=== PATIENT | male | born 1945 | race Caucasian/White ===

== ENCOUNTER 2019-03-24 23:27 | Observation (INO) | payer MEDICARE, OTHER ==
--- NOTE | 2019-03-25 00:19 | XR ---
EXAM: XR Chest, 1 View CLINICAL HISTORY: ITS.REASON XR Reason: syncope TECHNIQUE: Frontal view of the chest. COMPARISON: No relevant prior studies available. IMPRESSION: Cardiomegaly. No consolidation or pleural effusion.
--- NOTE | 2019-03-25 00:25 | ED ---
Syncope HPI - General Chief Complaint: Syncope Stated Complaint: Syncope Time Seen by Provider: 03/24/19 23:39 Source: patient, family Mode of arrival: ambulatory Limitations: no limitations - History of Present Illness Initial Comments: This patient is a 74-year-old man who comes in to be evaluated for syncopal episode. The patient relates that he had been sitting in a chair and reading a book, when he decided that it was time to give her a for bed. He states that he stood up, or was attempting to stand up and then does not recall anything until he woke up with EMS there. The patient's stated that she had come down to check him and found him slumped in the side of a chair. She states that she attempted to wake him, other family members did as well, and they were not able to so they called EMS. The patient slowly regained consciousness a number minutes later. Patient denies chest pain, dyspnea, palpitations, or any focal symptoms. In reviewing whether the patient had any chest pain, he displayed some ecchymosis to the anterior chest wall that he states been there approximately 3-4 days. He states that he believes he must a passed out and hit the anterior of his chest a few days ago. He denies significant pain but states it is a little bit of tenderness. MD Complaint: loss of consciousness Onset/Timin -: hour(s) Prodromal Symptoms: none -: minutes(s) Witnessed: yes - by bystander Injuries Sustained Associated with Event: None Current Symptoms: back to baseline History: previous syncopal episode Context: standing up Treatments Prior to Arrival: none - Related Data Allergies Allergy/AdvReac Type Severity Reaction Status Date / Time No Known Allergies Allergy Verified 03/24/19 23:37 Review of Systems ROS Statement: Those systems with pertinent positive or pertinent negative responses have been documented in the HPI. ROS Other: All systems not noted in ROS Statement are negative. Constitutional: Denies: fever, chills, weakness Eyes: Denies: vision change Respiratory: Denies: cough, dyspnea Cardiovascular: Reports: syncope. Denies: chest pain, palpitations, orthopnea, edema Gastrointestinal: Denies: abdominal pain, nausea, vomiting, melena, hematochezia Genitourinary: Denies: dysuria, hematuria Musculoskeletal: Denies: back pain Skin: Denies: rash Neurological: Denies: headache, weakness, numbness Past Medical History Past Medical History: Hearing Disorder / Deafness, Hyperlipidemia, Hypertension, Syncope, Thyroid Disorder Additional Past Medical History / Comment(s): hyponatremia, loss of hearing in left ear, vertigo, gout, kidney stones, low magnesium. History of Any Multi-Drug Resistant Organisms: None Reported Past Surgical History: Hernia Repair, Joint Replacement, Orthopedic Surgery Additional Past Surgical History / Comment(s): right hip, back pain stumulator placed and removed, bladder surgery, Past Psychological History: No Psychological Hx Reported Smoking Status: Former smoker Past Alcohol Use History: Abuse, Daily, Heavy Past Drug Use History: None Reported General Exam Limitations: no limitations General appearance: alert, in no apparent distress Head exam: Present: atraumatic, normocephalic Eye exam: Present: normal appearance. Absent: scleral icterus, conjunctival injection ENT exam: Present: normal oropharynx Neck exam: Present: normal inspection Respiratory exam: Present: normal lung sounds bilaterally, chest wall tenderness, other (The patient has subacute ecchymosis to the anterior chest. There is some minimal tenderness to palpation there. No palpable deformity.). Absent: respiratory distress, wheezes, rales, rhonchi, stridor Cardiovascular Exam: Present: regular rate, normal rhythm, normal heart sounds. Absent: systolic murmur, diastolic murmur, rubs, gallop GI/Abdominal exam: Present: soft. Absent: tenderness, guarding, rebound, mass, pulsatile mass Extremities exam: Present: normal inspection, normal capillary refill. Absent: pedal edema, calf tenderness Back exam: Present: normal inspection. Absent: CVA tenderness (R), CVA tenderness (L) Neurological exam: Present: alert, oriented X3, CN II-XII intact. Absent: motor sensory deficit Skin exam: Present: warm, dry, intact, normal color. Absent: rash Course Vital Signs 03/24/19 03/25/19 23:28 03:21 Temperature 97.7 F Pulse Rate 71 75 Respiratory 18 18 Rate Blood Pressure 99/56 131/69 O2 Sat by Pulse 97 100 Oximetry EKG Findings - EKG Results: EKG: interpreted by ERMD, sinus rhythm (Rate approximate 70 bpm) - Blocks, [place], Hypertrophy, ST Abn: AV and intraventricular conduction: 1 AV block Repolarization changes or abnormalities: nonspecific abnormality, ST segment, and/or T wave, Q-T interval prolongation Medical Decision Making - Lab Data Result diagrams: 03/24/19 23:50 03/24/19 23:50 Lab Results 03/24/19 03/24/19 03/24/19 Range/Units 23:50 23:50 23:50 WBC 4.8 (3.8-10.6) k/uL RBC 3.03 L (4.30-5.90) m/uL Hgb 9.8 L (13.0-17.5) gm/dL Hct 30.9 L (39.0-53.0) % MCV 102.0 H (80.0-100.0) fL MCH 32.2 (25.0-35.0) pg MCHC 31.6 (31.0-37.0) g/dL RDW 13.7 (11.5-15.5) % Plt Count 341 (150-450) k/uL Neutrophils % 43 % Lymphocytes % 37 % Monocytes % 8 % Eosinophils % 7 % Basophils % 2 % Neutrophils # 2.1 (1.3-7.7) k/uL Lymphocytes # 1.8 (1.0-4.8) k/uL Monocytes # 0.4 (0-1.0) k/uL Eosinophils # 0.3 (0-0.7) k/uL Basophils # 0.1 (0-0.2) k/uL Macrocytosis Slight PT 11.6 (9.0-12.0) sec INR 1.1 (<1.2) APTT 24.7 (22.0-30.0) sec D-Dimer 0.64 H (<0.60) mg/L FEU Sodium 129 L (137-145) mmol/L Potassium 4.2 (3.5-5.1) mmol/L Chloride 96 L (98-107) mmol/L Carbon Dioxide 22 (22-30) mmol/L Anion Gap 11 mmol/L BUN 13 (9-20) mg/dL Creatinine 1.68 H (0.66-1.25) mg/dL Est GFR (CKD-EPI)AfAm 46 (>60 ml/min/1.73 sqM) Est GFR (CKD-EPI)NonAf 40 (>60 ml/min/1.73 sqM) Glucose 114 H (74-99) mg/dL Calcium 9.3 (8.4-10.2) mg/dL Magnesium 1.6 (1.6-2.3) mg/dL Total Bilirubin 0.7 (0.2-1.3) mg/dL AST 33 (17-59) U/L ALT 13 L (21-72) U/L Alkaline Phosphatase 34 L (38-126) U/L Troponin I (0.000-0.034) ng/mL Total Protein 6.0 L (6.3-8.2) g/dL Albumin 3.5 (3.5-5.0) g/dL Urine Color Urine Appearance (Clear) Urine pH (5.0-8.0) Ur Specific [place] (1.001-1.035) Urine Protein (Negative) Urine Glucose (UA) (Negative) Urine Ketones (Negative) Urine Blood (Negative) Urine Nitrite (Negative) Urine Bilirubin (Negative) Urine Urobilinogen (<2.0) mg/dL Ur Leukocyte Esterase (Negative) Urine RBC (0-5) /hpf Urine WBC (0-5) /hpf Ur Squamous Epith Cells (0-4) /hpf Ur Transition Epith Cell (0-1) /hpf Urine Bacteria (None) /hpf Hyaline Casts (0-2) /lpf Urine Mucus (None) /hpf Serum Alcohol 122 mg/dL 03/24/19 03/25/19 Range/Units 23:50 01:23 WBC (3.8-10.6) k/uL RBC (4.30-5.90) m/uL Hgb (13.0-17.5) gm/dL Hct (39.0-53.0) % MCV (80.0-100.0) fL MCH (25.0-35.0) pg MCHC (31.0-37.0) g/dL RDW (11.5-15.5) % Plt Count (150-450) k/uL Neutrophils % % Lymphocytes % % Monocytes % % Eosinophils % % Basophils % % Neutrophils # (1.3-7.7) k/uL Lymphocytes # (1.0-4.8) k/uL Monocytes # (0-1.0) k/uL Eosinophils # (0-0.7) k/uL Basophils # (0-0.2) k/uL Macrocytosis PT (9.0-12.0) sec INR (<1.2) APTT (22.0-30.0) sec D-Dimer (<0.60) mg/L FEU Sodium (137-145) mmol/L Potassium (3.5-5.1) mmol/L Chloride (98-107) mmol/L Carbon Dioxide (22-30) mmol/L Anion Gap mmol/L BUN (9-20) mg/dL Creatinine (0.66-1.25) mg/dL Est GFR (CKD-EPI)AfAm (>60 ml/min/1.73 sqM) Est GFR (CKD-EPI)NonAf (>60 ml/min/1.73 sqM) Glucose (74-99) mg/dL Calcium (8.4-10.2) mg/dL Magnesium (1.6-2.3) mg/dL Total Bilirubin (0.2-1.3) mg/dL AST (17-59) U/L ALT (21-72) U/L Alkaline Phosphatase (38-126) U/L Troponin I <0.012 (0.000-0.034) ng/mL Total Protein (6.3-8.2) g/dL Albumin (3.5-5.0) g/dL Urine Color Dark Yellow Urine Appearance Cloudy (Clear) Urine pH 5.5 (5.0-8.0) Ur Specific [place] 1.016 (1.001-1.035) Urine Protein 2+ H (Negative) Urine Glucose (UA) Negative (Negative) Urine Ketones Negative (Negative) Urine Blood Negative (Negative) Urine Nitrite Negative (Negative) Urine Bilirubin Negative (Negative) Urine Urobilinogen <2.0 (<2.0) mg/dL Ur Leukocyte Esterase Trace H (Negative) Urine RBC 2 (0-5) /hpf Urine WBC 5 (0-5) /hpf Ur Squamous Epith Cells 2 (0-4) /hpf Ur Transition Epith Cell <1 (0-1) /hpf Urine Bacteria Rare H (None) /hpf Hyaline Casts 108 H (0-2) /lpf Urine Mucus Occasional H (None) /hpf Serum Alcohol mg/dL Disposition Clinical Impression: Syncope Disposition: ADMITTED IP TO THIS HOSP Condition: Good Is patient prescribed a controlled substance at d/c from ED?: No Referrals: Nonstaff,Physician [Primary Care Provider] - 1-2 days
[2019-03-25 00:34] LABS: Basophils # (A) 0.1 k/uL (0-0.2); Basophils % (A) 2 %; Eosinophils # (A) 0.3 k/uL (0-0.7); Eosinophils % (A) 7 %; HCT 30.9 % (39.0-53.0); HGB 9.8 gm/dL (13.0-17.5); Lymphocytes # (A) 1.8 k/uL (1.0-4.8); Lymphocytes % (A) 37 %; MCH 32.2 pg (25.0-35.0); MCHC 31.6 g/dL (31.0-37.0); Macrocytosis Slight; Monocytes # (A) 0.4 k/uL (0-1.0); Monocytes % (A) 8 %; Neutrophils # (A) 2.1 k/uL (1.3-7.7); Neutrophils % (A) 43 %; Platelet Count 341 k/uL (150-450); RBC 3.03 m/uL (4.30-5.90); RDW 13.7 % (11.5-15.5); WBC 4.8 k/uL (3.8-10.6)
[2019-03-25 00:44] LABS: INR 1.1 (<1.2); Partial Thromboplastin Time 24.7 sec (22.0-30.0); Prothrombin Time 11.6 sec (9.0-12.0)
[2019-03-25 00:59] LABS: D-Dimer 0.64 mg/L FEU (<0.60)
[2019-03-25 01:08] LABS: Albumin 3.5 g/dL (3.5-5.0); Calcium 9.3 mg/dL (8.4-10.2); Magnesium 1.6 mg/dL (1.6-2.3); Potassium 4.2 mmol/L (3.5-5.1); Total Bilirubin 0.7 mg/dL (0.2-1.3)
[2019-03-25 01:44] LABS: Appearance,Urine Cloudy (Clear); Bacteria,Urine Rare /hpf; Bilirubin,Urine Negative (Negative); Blood,Urine Negative (Negative); Color,Urine Dark Yellow; Glucose,Urine (UA) Negative (Negative); Hyaline Casts,Urine 108 /lpf (0-2); Ketones,Urine Negative (Negative); Leukocyte Esterase,Urine Trace (Negative); Mucus,Urine Occasional /hpf; Nitrite,Urine Negative (Negative); PH, Urine 5.5 (5.0-8.0); Protein,Urine 2+ (Negative); RBC,Urine 2 /hpf (0-5); Specific Gravity,Urine 1.016 (1.001-1.035); Squamous Epithelial Cell,Urine 2 /hpf (0-4); Transitional Epi Cells,Urine <1 /hpf (0-1); Urobilinogen,Urine <2.0 mg/dL (<2.0); WBC,Urine 5 /hpf (0-5)
[2019-03-25] MEDS ORDERED: SODIUM CHLORIDE 0.9% 1,000 ML IV ONE ×2 (01:51→03:28)
--- NOTE | 2019-03-25 03:26 | CT ---
EXAM: CT Angiography Chest With Intravenous Contrast CLINICAL HISTORY: ITS.REASON CT Reason: Pain TECHNIQUE: Axial computed tomographic angiography images of the chest with intravenous contrast using pulmonary embolism protocol. CTDI is 11 mGy and DLP is 472 mGy-cm. This CT exam was performed using one or more of the following dose reduction techniques: automated exposure control, adjustment of the mA and/or kV according to patient size, and/or use of iterative reconstruction technique. MIP reconstructed images were created and reviewed. COMPARISON: Chest x-ray 03/25/19 FINDINGS: Pulmonary arteries: No filling defects. Aorta: No thoracic aortic aneurysm. Lungs: No mass. No consolidation. 5 mm nodule in the right middle lobe (series 401 image 81). Pleural space: No significant effusion. No pneumothorax. Heart: Mild cardiomegaly or pericardial effusion. Bones/joints: No acute fracture or dislocation. Soft tissues: Cholelithiasis. Lymph nodes: No enlarged lymph nodes. IMPRESSION: 1. No pulmonary embolism. 2. 5 mm nodule in the right middle lobe. 3. Cholelithiasis. Fleishner Society Guideline 2017: Solitary nodule size: <6 mm low-risk patients: no follow-up needed high-risk patients: optional CT at 12 months low-risk patients: a minimal or absent history of smoking and or other known risk factors high-risk patients: a history of smoking or of other known risk factors (e.g. first degree relative with lung cancer, or exposure to asbestos, radon, uranium)
[2019-03-25] MEDS ORDERED: NITROGLYCERIN SL TABS 0.4 MG TAB SUBLINGUAL PRN (04:13)
--- NOTE | 2019-03-25 06:53 | P.HPIM ---
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 The patient reports that he was reading a book and drinking gin and sprite in a chair at home prior to going to bed when he felt that he was more tired than usual. He initially tried to stand up but felt unsteady and thereby tried to hold onto the chair and attempted to stand again and then doesn't recall anything after that until he woke up at the side of the chair with EMS at his side. The patient's family tried to arouse him though wasn't able to with total down-time of 5-10 minutes. He denied any prodrome of chest pain, shortness of breath, palpitations. He also denied noticing weakness, numbness, tingling, tongue biting, or abnormal shaking movements. There was no reports ot noticing any unusual shaking movements, urinary incontinence, or fecal incontinence by his family members. He reports that he wa s admitted to a hospital in [place] 2 weeks ago for weakness and was found to be hyponatremic (reports Na of 120) which was corrected and he was discharged. He also reports that 2 days ago he had noticed a bruise on his chest and believes that he might have fallen previously and does not recall the episode. He reports a history of drinking heavily though states that he has cut down significantly now and drinks only a few alcoholic beverages daily. At time of the interview, he denied chest pain, shortness of breath, palpitations, fever, chills, cough, nausea, vomiting, abdominal pain, diarrhea, or constipation. He denied ever being hospitalized for his drinking. He underwent an extensive ev aluation in the ED with chest x-ray showing cardiomegaly, EKG with sinus rhythm with first-degree AV block at 70 bpm with PVCs with T-wave inversion in leads V1 to V3 and flattening in V4. He also underwent a chest CTA which revealed a 5 mm nodule in the right middle lobe (no prior history of smoking) with no additional acute abnormalities noted. Laboratory evaluation revealed a sodium of 129, t roponin < 0.012, d-dimer 0.64, serum alcohol 122, BUN 13, Cr 1.68, and hgb 9.8. He is being admitted to the medicine service for further management. Review of Systems Pertinent positives and negatives as discussed in HPI, a complete review of systems was performed and all other systems are negative. Past Medical History Past Medical History: Hearing Disorder / Deafness, Hyperlipidemia, Hypertension, Syncope, Thyroid Disorder Additional Past Medical History / Comment(s): hyponatremia, loss of hearing in left ear, vertigo, gout, kidney stones, low magnesium. balance issues History of Any Multi-Drug Resistant Organisms: None Reported Past Surgical History: Hernia Repair, Joint Replacement, Orthopedic Surgery Additional Past Surgical History / Comment(s): right hip, back pain stimulator placed and removed, bladder surgery, Past Anesthesia/Blood Transfusion Reactions: No Reported Reaction Past Psychological History: No Psychological Hx Reported Smoking Status: Never smoker Past Alcohol Use History: Abuse, Daily, Heavy Additional Past Alcohol Use History / Comment(s): patient reports that he drinks a half of a fifth of liquor daily for the last 40-50 years Past Drug Use History: None Reported - Past Family History Father Additional Family Medical History / Comment(s): back issues Mother Additional Family Medical History / Comment(s): ETOH Sister(s) Additional Family Medical History / Comment(s): MS Brother(s) Family Medical History: No Reported History Daughter(s) Family Medical History: Diabetes Mellitus Additional Family Medical History / Comment(s): right ear tumor Son(s) Additional Family Medical History / Comment(s): gout, kidney stones Medications and Allergies Allergies Allergy/AdvReac Type Severity Reaction Status Date / Time No Known Allergies Allergy Verified 03/25/19 04:59 Physical Exam Vitals: Vital Signs Temp Pulse Pulse Resp BP BP Pulse Ox 03/25/19 05:30 16 03/25/19 04:56 98.2 F 90 16 166/94 98 03/25/19 04:30 97.8 F 80 18 149/83 100 03/25/19 03:21 75 18 131/69 100 03/24/19 23:28 97.7 F 71 18 99/56 97 Intake and Output 03/24/19 03/24/19 03/25/19 14:59 22:59 06:59 Other: Voiding Method Toilet Weight 99.79 kg General: non toxic, no distress, appears at stated age, normal weight Derm: Ecchymosis over the sternum with mild tenderness, warm, dry Head: atraumatic, normocephalic, symmetric Eyes: EOMI, no lid lag, anicteric sclera, pupils equal round reactive to light ENT: Nose and ears atraumatic, no thrush, no pharyngeal erythema Neck: No thyromegaly, no cervical lymphadenopathy, trachea midline, supple Mouth: no lip lesion, mucus membranes moist Cardiovascular: S1S2 reg, no murmur, positive posterior tibial pulse bilateral, no edema, capillary refill less than 2 seconds Lungs: CTA bilateral, no rhonchi, no rales , no accessory muscle use Abdominal: soft, nontender to palpation, no guarding, no appreciable organomegaly, normal bowel sounds Ext: no gross muscle atrophy, muscle strength 5 out of 5 in all 4 extremities grossly, no contractures, Neuro: CN II-XI grossly intact, light touch intact all 4 extremities, finger to nose within normal limits Psych: Alert, oriented, appropriate affect Results CBC & Chem 7: 03/24/19 23:50 03/24/19 23:50 Labs: Abnormal Lab Results - Last 24 Hours (Table) 03/24/19 03/24/19 03/24/19 Range/Units 23:50 23:50 23:50 RBC 3.03 L (4.30-5.90) m/uL Hgb 9.8 L (13.0-17.5) gm/dL Hct 30.9 L (39.0-53.0) % MCV 102.0 H (80.0-100.0) fL D-Dimer 0.64 H (<0.60) mg/L FEU Sodium 129 L (137-145) mmol/L Chloride 96 L (98-107) mmol/L Creatinine 1.68 H (0.66-1.25) mg/dL Glucose 114 H (74-99) mg/dL ALT 13 L (21-72) U/L Alkaline Phosphatase 34 L (38-126) U/L Total Protein 6.0 L (6.3-8.2) g/dL Urine Protein (Negative) Ur Leukocyte Esterase (Negative) Urine Bacteria (None) /hpf Hyaline Casts (0-2) /lpf Urine Mucus (None) /hpf 03/25/19 Range/Units 01:23 RBC (4.30-5.90) m/uL Hgb (13.0-17.5) gm/dL Hct (39.0-53.0) % MCV (80.0-100.0) fL D-Dimer (<0.60) mg/L FEU Sodium (137-145) mmol/L Chloride (98-107) mmol/L Creatinine (0.66-1.25) mg/dL Glucose (74-99) mg/dL ALT (21-72) U/L Alkaline Phosphatase (38-126) U/L Total Protein (6.3-8.2) g/dL Urine Protein 2+ H (Negative) Ur Leukocyte Esterase Trace H (Negative) Urine Bacteria Rare H (None) /hpf Hyaline Casts 108 H (0-2) /lpf Urine Mucus Occasional H (None) /hpf Thrombosis Risk Factor Assmnt - Choose All That Apply Any of the Below Risk Factors Present?: Yes Each Factor Represents 1 point: Obesity (BMI >25) Other Risk Factors: Yes Each Risk Factor Represents 2 Points: Age 61-74 years Other congenital or acquired thrombophilia - If yes, enter type in comment: No Thrombosis Risk Factor Assessment Total Risk Factor Score: 3 Thrombosis Risk Factor Assessment Level: Moderate Risk Assessment and Plan Plan: Syncope, likely orthostatic in setting of alcohol intoxication -Patient already received 2 L of NS in the ED BP on admission 99/56 improved to 166/94. -We'll check orthostatic vital signs -Cardiac monitoring -Echocardiogram -Fall, aspiration, seizure precautions MYRNA vs CKD -Monitor BMP Macrocytic anemia -Check B12, Folate, Iron Hyponatremia -Start IVFs after checking orthostatics -Monitor BMP HTN -Patient doesn't recall his antihypertensives. Confirm from pharmacy and resume DVT prophylaxis -Heparin The patient is admitted with an anticipated less than 2 midnight stay for evaluation of syncope. CODE STATUS:Full Code Discussed with: Patient Anticipated discharge date: 03/26/[address]: Home A total of 40 minutes was spent on the care of this complex patient more than 50% of the time was spent in counseling and care coordination.
[2019-03-25] MEDS ORDERED: SODIUM CHLORIDE 0.9% 1,000 ML IV SCH (07:15)
[2019-03-25 07:25] LABS: Calcium 8.6 mg/dL (8.4-10.2); Magnesium 1.5 mg/dL (1.6-2.3); Potassium 4.3 mmol/L (3.5-5.1)
[2019-03-25] MEDS ORDERED: HEPARIN SODIUM,PORCINE 5,000 UNIT/ML 1 ML VIAL SQ SCH (08:00)
[2019-03-25 08:18] VITALS: RESP 18
--- NOTE | 2019-03-25 08:49 | CONS ---
CONSULTATION Mr. Merida is a 74-year-old male who presented through the emergency room with a syncopal episode. He is visiting from [place]. He has a history of hypertension, hyperlipidemia as well history of inner ear abnormality. Yesterday, he was sitting, reading. He did not feel too well, stood up and felt dizzy. Sat again and then stood up again and had syncopal episode lasting for 3-4 minutes according to him. The episode was not associated with any tonic-clonic activity. He had no focal weakness. No chest discomfort. No palpitation. No change in his breathing. His activity is limited because of his inner ear imbalance as well as his hip discomfort. He has no prior cardiac history. He had a prior syncopal episode and at times was thought to be related to alcohol intake. Patient drinks on a regular basis, was drinking more heavily in the past, but continues to drink and he had some alcohol yesterday. He has a prior admission to his [facility] to the hospital as well. He has no prior cardiac history and no history of myocardial infarction or congestive heart failure. He denies any chest discomfort, peripheral edema or dyspnea on exertion. He has no PND, orthopnea. He denies any palpitations. His coronary risk factors are remarkable for history of hypertension, hyperlipidemia. MEDICATIONS: His medication include Micardis, Allopurinol, fenofibrate, atorvastatin, aspirin. He cannot recall the dosage of the medication. REVIEW OF SYSTEMS: RESPIRATORY system: He has no documented history of asthma or emphysema or bronchitis. GI system: No recent GI bleeding. No peptic ulcer disease. system: No dysuria or hematuria. NERVOUS SYSTEM: He has a remote history of seizure that was thought to be related to alcoholism. PHYSICAL EXAMINATION: He is a 74-year-old male, alert, oriented, in no apparent distress. Blood pressure 166/90 with a heart rate in the 90s. His blood pressure on presentation was 99/60. HEAD: Normocephalic. Eyes: Sclerae anicteric. NECK: Good upstroke. No bruit. No jugular venous distention. LUNGS: Clear to auscultation. HEART: Regular rate and rhythm S1, S2. No S3. No S4. No murmur or rub. ABDOMEN: Soft, nontender. Positive bowel sounds. No organomegaly. EXTREMITIES: No edema. Intact distal pulses. LAB DATA: Lab data revealed hemoglobin of 9.8. D-dimer 0.64 and creatinine 1.68. Potassium 4.2. Troponin less than 0.012. His alcohol level was 122. EKG revealed a sinus mechanism, first-degree block, poor R wave progression nonspecific ST-T wave changes. Chest x-ray shows no acute infiltrate. CT angiogram of the chest shows no evidence of pulmonary embolism with 2 mm nodule in the right middle lobe in cholelithiasis were noted. IMPRESSION: 1. Syncopal episode, most likely related to orthostatic hypotension and alcoholism. 2. Abnormal renal function of unknown duration. 3. Anemia. 4. Hyponatremia. 5. Hypertension. 6. Hyperlipidemia. RECOMMENDATION: From the cardiac standpoint, I will obtain echocardiogram with Doppler. The patient will receive intravenous fluid. We will repeat his renal function. I have discussed with him the importance of alcohol cessation position gradually. Once we have the dose of his medication, they can be re-initiated. Depending on his progress, further recommendation will be made. Thank you for this consult. We will follow with you. MMEMIGDIOL / IJN: [id number] /
[2019-03-25 12:08] VITALS: TEMP 98.2
--- NOTE | 2019-03-25 13:08 | ECHOF ---
Referral Reason:syncope MEASUREMENTS -------- HEIGHT: 177.8 cm WEIGHT: 99.8 kg BP: 158/3 RVIDd: 3.4 cm (< 3.3) IVSd: 1.3 cm (0.6 - 1.1) LVIDd: 5.2 cm (3.9 - 5.3) LVPWd: 1.4 cm (0.6 - 1.1) IVSs: 1.6 cm LVIDs: 3.3 cm LVPWs: 1.9 cm LA Diam: 3.8 cm (2.7 - 3.8) LAESV Index (A-L): 25.14 ml/m Ao Diam: 4.3 cm (2.0 - 3.7) AV Cusp: 2.9 cm (1.5 - 2.6) MV EXCURSION: 19.523 mm (> 18.000) MV EF SLOPE: 52 mm/s (70 - 150) EPSS: 1.0 cm MV E Noel: 0.90 m/s MV DecT: 222 ms MV A Noel: 1.35 m/s MV E/A Ratio: 0.66 RAP: 5.00 mmHg RVSP: 25.88 mmHg FINDINGS -------- Sinus rhythm. This was a technically good study. The left ventricular size is normal. There is moderate concentric left ventricular hypertrophy. O verall left ventricular systolic function is normal with, an EF between 55 - 60 %. The right ventricle is mildly enlarged. Normal LA size by volume 22+/-6 ml/m2. The right atrium is normal in size. Aneurysmal Interatrial septum. The aortic valve is trileaflet, and appears structurally normal. No aortic stenosis or regurgitation. The mitral valve is normal. There is trace to mild mitral regurgitation. Mild tricuspid regurgitation present. Right ventricular systolic pressure is normal at < 35 mmHg. There is no pulmonic regurgitation present. The aortic root is dilated measuring 4.3cm. Normal inferior vena cava with normal inspiratory collapse consistent with estimated right atrial pre ssure of 5 mmHg. There is no pericardial effusion. CONCLUSIONS -------- 1. Sinus rhythm. 2. This was a technically good study. 3. The left ventricular size is normal. 4. There is moderate concentric left ventricular hypertrophy. 5. Overall left ventricular systolic function is normal with, an EF between 55 - 60 %. 6. The right ventricle is mildly enlarged. 7. Normal LA size by volume 22+/-6 ml/m2. 8. Aneurysmal Interatrial septum. 9. The aortic valve is trileaflet, and appears structurally normal. No aortic stenosis or regurgitati on. 10. The mitral valve is normal. 11. There is trace to mild mitral regurgitation. 12. Mild tricuspid regurgitation present. 13. Right ventricular systolic pressure is normal at < 35 mmHg. 14. There is no pulmonic regurgitation present. 15. The aortic root is dilated measuring 4.3cm. 16. Normal inferior vena cava with normal inspiratory collapse consistent with estimated right atrial pressure of 5 mmHg. 17. There is no pericardial effusion. TRIMMER SAWYER: Siobhan Roldan RDCS
[2019-03-25] MEDS: MAGNESIUM SULFATE-D5W PMX 1 GM in DEXTROSE/WATER 1 100ML.BAG IVPB SCH ×2 (13:30→14:30)
[2019-03-25 14:23] VITALS: BMI 31.5
[2019-03-25 17:14] VITALS: BP 159/70; PULSE 93
--- NOTE | 2019-03-25 17:28 | P.DS ---
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 The patient reports that he was reading a book and drsamanta davis and sprite in a chair at home prior to going to bed when he felt that he was more tired than usual. He initially tried to stand up but felt unsteady and thereby tried to hold onto the chair and attempted to stand again and then doesn't recall anything after that until he woke up at the side of the chair with EMS at his side. The patient's family tried to arouse him though wasn't able to with total down-time of 5-10 minutes. He denied any prodrome of chest pain, shortness of breath, palpitations. He also denied noticing weakness, numbness, tingling, tongue biting, or abnormal shaking movements. There was no reports ot noticing any unusual shaking movements, urinary incontinence, or fecal incontinence by his family members. He reports that he was admitted to a hospital in [place] 2 weeks ago for weakness and was found to be hyponatremic (reports Na of 120) which was corrected and he was discharged. He also reports that 2 days ago he had noticed a bruise on his chest and believes that he might have fallen previously and does not recall the episode. He reports a history of drinking heavily though states that he has cut down significantly now and drinks only a few alcoholic beverages daily. At time of the interview, he denied chest pain, shortness of breath, palpitations, fever, chills, cough, nausea, vomiting, abdominal pain, diarrhea, or constipation. He denied ever being hospitalized for his drinking. He underwent an extensive evaluation in the ED with chest x- ray showing cardiomegaly, EKG with sinus rhythm with first-degree AV block at 70 bpm with PVCs with T-wave inversion in leads V1 to V3 and flattening in V4. He also underwent a chest CTA which revealed a 5 mm nodule in the right middle lobe (no prior history of smoking) with no additional acute abnormalities noted. Laboratory evaluation revealed a sodium of 129, troponin < 0.012, d-dimer 0.64, serum alcohol 122, BUN 13, Cr 1.68, and hgb 9.8. He is being admitted to the medicine service for further management. His syncope was thought to be orthostatic in the setting of alcohol intoxication. Patient received 2 L of normal saline in the ED which improved his blood pressure. Orthostatic vital signs were negative. Troponin was less than 0.0123 with EKG showing normal sinus rhythm, ACS was ruled out. Cardiology was consulted and recommended echocardiogram. Echocardiogram showed EF 55-60% with moderate concentric LVH. Telemetry showed no events. Patient was noted to have a sodium of 129 and creatinine of 1.68 on admission. This was thought to be secondary to dehydration. Sodium improved to 1 3100 discharge. His creatinine improved to 1.40 on discharge. Patient had a magnesium of 1.5 which was replaced with 2 g of magnesium sulfate IV. Patient was seen and examined prior to discharge. No acute events overnight.patient denies any dizziness, chest pain, shortness of breath or palpitations. No nausea or vomiting. No fever or chills. States he needs to get home to [place] to see his PCP tomorrow. States that his will be driving. General: [non toxic], [no distress], [appears at stated age] Derm: [warm], [dry] Head: [atraumatic], [normocephalic], [symmetric] Eyes: [EOMI], [no lid lag], [anicteric sclera] Mouth: [no lip lesion], [mucus membranes moist] Cardiovascular: [S1S2 reg], [no murmur], [positive posterior tibial pulse bilateral], Lungs: [CTA bilateral], [no rhonchi, no rales] , [no accessory muscle use] Abdominal: [soft], [ nontender to palpation], [no guarding], [no appreciable organomegaly] Ext: [no gross muscle atrophy], [no edema], [no contractures] Neuro: [ CN II-XI grossly intact], [no focal neuro deficits] Psych: [Alert], [oriented], [appropriate affect] Syncope, likely orthostatic Acute kidney injury Macrocytic anemia Hyponatremia Hypertension Chest CTA ruled out PE. Orthostatic vitals negative but patient received 2 L in the ED prior to vitals being checked. Troponin was less than 0.0123 with EKG showing normal sinus rhythm, ACS ruled out. Echocardiogram shows normal EF with diastolic dysfunction. Plan: Suspect orthostatic. Patient was given IVF, encourage hydration by mouth. Creatinine 1.68-1.40. Likely secondary to dehydration. Plan: Avoid nephrotoxins. Encourage hydration by mouth. Hemoglobin 9.8, MCV of 102. Likely secondary to alcohol abuse. Plan: Follow-up PCP for further workup. Sodium 129-131. Likely secondary to dehydration. Plan: Encourage hydration by mouth. BP 159/70. Plan: Monitor vitals, adjust medications as necessary. Patient discharged home today. Follow-up with PCP tomorrow. Advised patient not to drive today to [place], and to let drive until clearance by PCP. Patient verbalized understanding of plan. Pertinent Studies: echocardiogram, chest x-ray, chest CT Patient Condition at Discharge: Good Plan - Discharge Summary Discharge Rx Participant: No New Discharge Prescriptions: Continue Vitamin B Complex 1 cap PO DAILY Atorvastatin [Lipitor] 40 mg PO HS Vit C/E/Zn/Coppr/Lutein/Zeaxan [Preservision Areds 2 Softgel] 1 cap PO DAILY Ubidecarenone [Co Q-10] 100 mg PO DAILY Multivitamins, Thera [Multivitamin (formulary)] 1 tab PO HS Cholecalciferol [Vitamin D3 (25 Mcg = 1000 Iu)] 1,000 unit PO BID Solifenacin Succinate [Vesicare] 10 mg PO DAILY Pregabalin [Lyrica] 150 mg PO BID Aspirin EC [Ecotrin Low Dose] 81 mg PO HS Allopurinol [Zyloprim] 300 mg PO DAILY Pantoprazole Sodium [Protonix] 40 mg PO DAILY Magnesium Oxide [Magox 400] 400 mg PO BID Levothyroxine Sodium [Synthroid] 137 mcg PO DAILY Fenofibrate Unknown Dose 1 tab PO DAILY Micardis Unknown Dose 1 tab PO DAILY Discharge Medication List Allopurinol [Zyloprim] 300 mg PO DAILY 03/25/19 [History] Aspirin EC [Ecotrin Low Dose] 81 mg PO HS 03/25/19 [History] Atorvastatin [Lipitor] 40 mg PO HS 03/25/19 [History] Cholecalciferol [Vitamin D3 (25 Mcg = 1000 Iu)] 1,000 unit PO BID 03/25/19 [History] Fenofibrate Unknown Dose 1 tab PO DAILY 03/25/19 [History] Levothyroxine Sodium [Synthroid] 137 mcg PO DAILY 03/25/19 [History] Magnesium Oxide [Magox 400] 400 mg PO BID 03/25/19 [History] Micardis Unknown Dose 1 tab PO DAILY 03/25/19 [History] Multivitamins, Thera [Multivitamin (formulary)] 1 tab PO HS 03/25/19 [History] Pantoprazole Sodium [Protonix] 40 mg PO DAILY 03/25/19 [History] Pregabalin [Lyrica] 150 mg PO BID 03/25/19 [History] Solifenacin Succinate [Vesicare] 10 mg PO DAILY 03/25/19 [History] Ubidecarenone [Co Q-10] 100 mg PO DAILY 03/25/19 [History] Vit C/E/Zn/Coppr/Lutein/Zeaxan [Preservision Areds 2 Softgel] 1 cap PO DAILY 03/25/19 [History] Vitamin B Complex 1 cap PO DAILY 03/25/19 [History] Follow up Appointment(s)/Referral(s): Nonstaff,Physician [Primary Care Provider] - 1-2 days Activity/Diet/Wound Care/Special Instructions: Diet: Heart healthy Follow-up with PCP within 1-2 days of discharge. Follow-up with cardiology within 1 week of discharge. You'll need to make this appointment with her stitcher operator. Take all medications as advised. Come back to the ED or call 911 for chest pain, shortness of breath or palpitations. Discharge Disposition: HOME SELF-CARE
[2019-03-25] MEDS ORDERED: ATORVASTATIN 40 MG TAB PO SCH (21:00)
[2019-03-25] MEDS ORDERED: ASPIRIN 81 MG PO SCH (21:00)
[2019-03-25] MEDS ORDERED: PREGABALIN 75 MG CAP PO SCH (21:00)
[2019-03-26] MEDS ORDERED: LEVOTHYROXINE 137 MCG TAB PO SCH (06:30)
[2019-03-26] MEDS ORDERED: PANTOPRAZOLE 40 MG TABLET PO SCH (07:30)
[2019-03-26] MEDS ORDERED: ASPIRIN 325 MG TAB PO SCH (09:00)
[2019-03-26] MEDS ORDERED: TROSPIUM CHLORIDE 20 MG TABLET PO SCH (09:00)
== END 2019-03-25 18:26 | disposition home or self-care (01) ==
LOC: EC 23:27 → 1SOBS 03-25 04:17
PROVIDERS: ADMIT Internal Medicine; ATTEND Internal Medicine
DX: R55 Syncope and collapse (principal); N17.9 Acute kidney failure, unspecified; D53.9 Nutritional anemia, unspecified; E87.1 Hypo-osmolality and hyponatremia; I10 Essential (primary) hypertension; E86.0 Dehydration; E83.42 Hypomagnesemia; S20.219A Contusion of unspecified front wall of thorax, initial encounter; F10.229 Alcohol dependence with intoxication, unspecified; H93.3X9 Disorders of unspecified acoustic nerve; E78.5 Hyperlipidemia, unspecified; M10.9 Gout, unspecified; E07.9 Disorder of thyroid, unspecified; E66.9 Obesity, unspecified; Z68.31 Body mass index [BMI] 31.0-31.9, adult; Z87.442 Personal history of urinary calculi; Z87.891 Personal history of nicotine dependence; Z83.3 Family history of diabetes mellitus; Y90.6 Blood alcohol level of 120-199 mg/100 ml; I11.9 Hypertensive heart disease without heart failure; I44.0 Atrioventricular block, first degree; R91.1 Solitary pulmonary nodule; Z79.899 Other long term (current) drug therapy; Z79.82 Long term (current) use of aspirin; Z79.890 Hormone replacement therapy; Z82.69 Family history of other diseases of the musculoskeletal system and connective tissue; Z82.0 Family history of epilepsy and other diseases of the nervous system; X58.XXXA Exposure to other specified factors, initial encounter
CPT/HCPCS: 96365; 96366; 96372; 96361; 99285; 36415; 94760; 93005; 93306; 85379; 80053; 80048; 83735; 84484; 85025; 85610; 85730; 81001; 71045; 71275; G0378; G0480; J1644; J3475; Q9967; 80320; 96374; 96375; 96376